=== PATIENT | female | born 1940 | race Caucasian/White ===

== ENCOUNTER 2017-12-01 15:41 | Inpatient (IN) | payer OTHER ==
[~2017-12-01] VITALS: Ht 147.3 cm; Wt 45.4 kg
[~2017-12-01 15:41] MED LIST: NABUMETONE500 MG PO
[2017-12-01] MEDS ORDERED: ZANTAC300 MG (15:54)
[2017-12-01] MEDS ORDERED: CLONAZEPAM0.5 M1 (15:54)
[2017-12-01] MEDS ORDERED: PENTOXIFYLLINE400 MG (15:54)
[2017-12-01] MEDS ORDERED: RISPERIDONE OD0.5 MG (15:56)
[2017-12-01] MEDS ORDERED: CARBIDOPA-LEVO1 EAC4 (15:58)
[2017-12-01] MEDS ORDERED: BICARSIM80 MG (15:58)
== END 2018-01-05 13:04 | disposition other institution (70) | DRG 853 ==
LOC: ER 15:41 → MEDI 21:01 → SEC-K 21:01 → O/R 12-02 15:42 → SEC-K 12-02 15:47 → MEDI 12-02 20:57 → MEDJ 12-09 20:16
PROC: 30233N1 Transfusion of Nonautologous Red Blood Cells into Peripheral Vein, Percutaneous Approach (ICD-10-PCS; 2017-12-02)
PROC: 8E0ZXY6 Isolation (ICD-10-PCS; 2017-12-03)
PROC: CP1Z1ZZ Planar Nuclear Medicine Imaging of Musculoskeletal System, All using Technetium 99m (Tc-99m) (ICD-10-PCS; 2017-12-05)
PROC: 0JB70ZZ Excision of Back Subcutaneous Tissue and Fascia, Open Approach (ICD-10-PCS; principal; 2017-12-06)
PROC: 0JBM0ZZ Excision of Left Upper Leg Subcutaneous Tissue and Fascia, Open Approach (ICD-10-PCS; 2017-12-06)
PROC: 0JBL0ZZ Excision of Right Upper Leg Subcutaneous Tissue and Fascia, Open Approach (ICD-10-PCS; 2017-12-06)
PROC: 05H333Z Insertion of Infusion Device into Right Innominate Vein, Percutaneous Approach (ICD-10-PCS; 2017-12-06)
PROC: 4A033R1 Measurement of Arterial Saturation, Peripheral, Percutaneous Approach (ICD-10-PCS; 2017-12-09)
PROC: 05H533Z Insertion of Infusion Device into Right Subclavian Vein, Percutaneous Approach (ICD-10-PCS; 2017-12-12)
PROC: 0JBM0ZZ Excision of Left Upper Leg Subcutaneous Tissue and Fascia, Open Approach (ICD-10-PCS; 2017-12-17)
PROC: 3E0F7GC Introduction of Other Therapeutic Substance into Respiratory Tract, Via Natural or Artificial Opening (ICD-10-PCS; 2017-12-17)
PROC: 05PYX3Z Removal of Infusion Device from Upper Vein, External Approach (ICD-10-PCS; 2018-01-05)
DX: A41.9 Sepsis, unspecified organism (principal); L89.154 Pressure ulcer of sacral region, stage 4; L89.224 Pressure ulcer of left hip, stage 4; L89.214 Pressure ulcer of right hip, stage 4; B37.49 Other urogenital candidiasis; J98.11 Atelectasis; L89.810 Pressure ulcer of head, unstageable; Z74.01 Bed confinement status; G20 Parkinson's disease; F02.80 Dementia in other diseases classified elsewhere, unspecified severity, without behavioral disturbance, psychotic disturbance, mood disturbance, and anxiety; I10 Essential (primary) hypertension; L89.020 Pressure ulcer of left elbow, unstageable; L89.010 Pressure ulcer of right elbow, unstageable; B96.20 Unspecified Escherichia coli [E. coli] as the cause of diseases classified elsewhere; B96.1 Klebsiella pneumoniae [K. pneumoniae] as the cause of diseases classified elsewhere; B95.2 Enterococcus as the cause of diseases classified elsewhere; B96.4 Proteus (mirabilis) (morganii) as the cause of diseases classified elsewhere; B95.62 Methicillin resistant Staphylococcus aureus infection as the cause of diseases classified elsewhere; B95.1 Streptococcus, group B, as the cause of diseases classified elsewhere; D64.89 Other specified anemias; Z78.1 Physical restraint status; Z93.1 Gastrostomy status